=== PATIENT | male | born 1975 | race Caucasian/White ===

== ENCOUNTER 2017-12-12 02:51 | Emergency (ER) | payer OTHER, SELFPAY ==
[2017-12-12 03:03] VITALS: BP 163/105; PULSE 73; RESP 20; TEMP 36.9; O2SAT 97; BMI 27.8
--- NOTE | 2017-12-12 03:15 | ED_ITS ---
HPI - Dental/Oral General Chief complaint: Dental/Oral Stated complaint: mouth injury/cuts to lip - at work Time Seen by Provider: 12/12/17 03:01 Source: patient Mode of arrival: ambulatory Limitations: no limitations History of Present Illness HPI Narrative: 42-year-old male here for evaluation of a mouth injury. Patient states that he was working with a pneumatic tool when it kicked back and hit him in the mouth. Patient was at work at that time. Does have a cut to his lip. No dental issues. Did not knock him out. Patient does not know when his last tetanus shot was. Related Data Allergies Allergy/AdvReac Type Severity Reaction Status Date / Time No Known Drug Allergies Allergy Verified 12/12/17 03:07 Review of Systems Constitutional Denies chills, Denies fever(s), Denies headache(s), Denies lethargy and Denies weakness Eyes Denies blurry vision, Denies diplopia, Denies loss of vision and Denies eye pain ENT Ears, Nose, Mouth, and Throat: Denies dental pain, Denies headache(s), Reports mouth pain, Denies nasal discharge, Denies nasal obstruction, Denies nose pain, Denies sinus pain, Denies sore throat and Denies throat swelling Comments: Cut to the lower lip and upper lip Integumentary/Breasts Comments: Cut to upper and lower lobes Neurologic Denies headache(s), Denies loss of vision and Denies weakness Hematologic/Lymphatic Denies easy bruising Allergic/Immunologic Denies throat swelling [facility] Social History Smoking Status: Current every day smoker Exam Initial Vital Signs Initial Vital Signs: Vital Signs Temperature 98.5 F 12/12/17 03:03 Pulse Rate 73 12/12/17 03:03 Respiratory Rate 20 12/12/17 03:03 Blood Pressure 163/105 H 12/12/17 03:03 Pulse Oximetry 97 12/12/17 03:03 Const General: cooperative and well developed Nutritional Appearance: well nourished Orientation: alert, awake, oriented x3 and not confused [facility] Head: normal to inspection, normocephalic and atraumatic Nose: external nose normal, nares normal and septum normal Mouth: oral mucosae normal, tongue normal, oropharynx normal, moist mucous membranes and lip abnormal Teeth and gingiva: dentition normal Resp Effort & Inspection: normal respiratory effort Skin Other: Cut to the lip as described in the head section Extrem General: normal to inspection, full ROM and capillary refill normal Procedures Laceration Repair Laceration 1: Site: lip Side (If applicable): left Size (cm): 1 Description: linear Depth: simple, single layer Local Anesthetic: lidocaine 1% and with epi Amount of anesthesia used (mL): 3 Pre-repair: wound explored Skin layer closed with: other (Chromic) Size (cm): 5-0 Number of sutures: 5 Technique: simple, interrupted Course Orders Ordered: Discontinued Medications Diphtheria/Tetanus/Acell Pertussis (Adacel) 0.5 ml IM .ONCE ONE Stop: 12/12/17 03:15 Last Admin: 12/12/17 03:28 Dose: 0.5 ml Vital Signs - 8 hr 12/12/17 03:03 12/12/17 03:49 Temperature 98.5 F 98.6 F Pulse Rate 73 71 Respiratory Rate 20 16 Blood Pressure 163/105 H 143/99 H Pulse Oximetry 97 96 MDM - Dental/Oral MDM Narrative Medical decision making narrative: Patient's tetanus was updated. The laceration to the lower lip was superficial and secondary to the location will hold on any suturing. The laceration to the upper lip does not involve the vermilion border. A infraorbital nerve block was performed. Closed as described above. Patient was given care instructions. He was given return precautions. He expressed understanding and agreement with plan Discharge Plan Departure Patient Disposition: Home, Self-Care Clinical Impression: Laceration of lip Discharge Date/Time: 12/12/17 03:50 Interventions: ED Discharge Assessment Last Done: 12/12/17 03:49 Instructions: DI for Laceration Repair Activity Restrictions/Additional Instructions: You can shower like normal eat and drink like normal. Recommend that you put ice over the area. The stitches that were placed are removable and should come out on their own. Return to the emergency department for any new or worsening symptoms
[2017-12-12] MEDS: TET,DIPH,PERTUSS(ACELL),VAC/PF 0.5 ML SYRINGE IM (03:28)
[2017-12-12 03:49] VITALS: BP 143/99; PULSE 71; RESP 16; TEMP 37; O2SAT 96
== END 2017-12-12 03:50 | disposition home or self-care (01) ==
PROVIDERS: Emergency Provider Emergency Medicine
DX: S01.511A Laceration without foreign body of lip, initial encounter (principal); W22.8XXA Striking against or struck by other objects, initial encounter; Y99.0 Civilian activity done for income or pay
CPT/HCPCS: 12011; 99282; 90715